=== PATIENT | male | born 1940 | race Caucasian/White ===

== ENCOUNTER 2018-06-09 12:26 | Emergency (ER) | payer MEDICARE, OTHER ==
[2018-06-09] MEDS ORDERED: ceFAZolin 1 GM VIAL IM STA (13:07)
[2018-06-09] MEDS ORDERED: LIDOCAINE MPF 1%-EPI 1:200000 30 ML VIAL SUBQ STA (14:37)
--- NOTE | 2018-06-09 14:40 | Ultrasound Report ---
Reason: right lower leg swelling and tender Procedure Date: 06/09/2018 Accession Number: [id number] / [id number] Procedure: US - Duplex Ext Veins Right CPT Code: FULL RESULT: EXAM: RIGHT LOWER EXTREMITY VENOUS ULTRASOUND EXAM DATE: 06/09/2018 01:53 PM. CLINICAL HISTORY: Right leg pain COMPARISON: None. TECHNIQUE: Real-time sonographic vascular imaging was performed by the prescriptionist through the lower extremity utilizing both color-flow and Doppler spectral analysis. Multiple service support representative static images were saved for review. FINDINGS: Common Femoral Vein (CFV): Normal. CFV-GSV Junction: Normal. Profunda Femoral Vein (PFV): Normal. Femoral Vein (FV) Prox: Normal. Femoral Vein (FV) Mid: Normal. Femoral Vein (FV) Dist: Normal. Popliteal Vein: Normal. Posterior Tibial Veins: Visualized portions within normal limits. Peroneal Veins: Not seen. Other: None. IMPRESSION: No evidence for deep venous thrombosis. RADIA
[2018-06-09 15:03] VITALS: BP 150/66
--- NOTE | 2018-06-09 15:23 | ED Physician Documentation ---
PD HPI SKIN - Stated complaint Stated Complaint: SENT/POSS DVT - Chief complaint Chief Complaint: General - History obtained from History obtained from: Patient - History of Present Illness Timing - onset: How many days ago (3-4 days) Timing - duration: Days Timing - details: Abrupt onset (he says he awoke with swelling in front of heredia. No noted injury. Has had discoloration develop distal to it with swelling in anterior lower leg. No calf pain per se. Seen by PCP and referred to ER for concern of DVT and possible cellulitis.) Location: RLE (anterior proximal heredia initially, then with dusky discoloration and swelling distal anterolateral lower leg.) Quality / character: Discolored (dusky red/purple on anterolateral lower leg.), Swelling Associated symptoms: No: Fever, Myalgias, N/V/D Similar symptoms before: Has not had sx before Review of Systems Constitutional: denies: Fever, Chills Skin: denies: Abrasion (s), Laceration (s) Neurologic: denies: Focal weakness, Numbness PD PAST MEDICAL HISTORY - Past Medical History Cardiovascular: Hypertension, Coronary artery disease, Atrial fibrillation, Other Respiratory: None Endocrine/Autoimmune: None GI: None : None HEENT: Chronic vision loss, Chronic hearing loss Psych: None Musculoskeletal: Osteoarthritis Derm: None - Past Surgical History General: Colonoscopy Ortho: Hip replacement, Other Cardiovascular: CABG, Coronary stent - Present Medications Home Medications: Ambulatory Orders Medication Instructions Recorded Confirmed Amlodipine Besylate/Benazepril 5 mg ORAL BID 01/29/15 01/29/15 [Lotrel 5-10 mg Capsule] Aspirin/Calcium Carbonate/Mag 81 mg ORAL DAILY 01/29/15 01/29/15 [Aspirin Buffered 325 mg Tab] Atenolol/Chlorthalidone 50 mg ORAL DAILY 01/29/15 10/29/15 [Atenolol-Chlorthalidone 50-25] Calcium Carb/Magnesium Ox,Carb 1 DAILY 01/29/15 01/29/15 [Parveen-Mag Tablet Chewable] Cholecalciferol (Vitamin D3) 1 DAILY 01/29/15 01/29/15 [Vitamin D] Gluc/MSM/C/[place]/Manganes/Prim 1 DAILY 01/29/15 01/29/15 [Joint Support Complex Softgel] Multivitamin [Multivitamins] 1 DAILY 01/29/15 01/29/15 [place]-3 Fatty Acids/Fish Oil 1 DAILY 01/29/15 01/29/15 [[place] 3 1,000 mg Softgel] Rosuvastatin Calcium [Crestor] 1 DAILY 01/29/15 01/29/15 Tamsulosin HCl [Flomax] 1 DAILY 01/29/15 01/29/15 Cephalexin [Keflex] 500 mg PO Q6H #28 capsule 06/09/18 - Allergies Allergies/Adverse Reactions: Allergies Allergy/AdvReac Type Severity Reaction Status Date / Time No Known Drug Allergies Allergy Verified 06/09/18 13:00 - Social History Does the pt smoke?: No Smoking Status: Never smoker Does the pt drink ETOH?: Yes Does the pt have substance abuse?: No - Immunizations Immunizations are current?: Yes - POLST Patient has POLST: No PD ED PE NORMAL - Vitals Vital signs reviewed: Yes - General General: Alert and oriented X 3, No acute distress, Well developed/nourished - Derm Derm: Normal color, Warm and dry - Extremities Extremities: Other (right proximal anterior heredia with focal area of swelling and fluctuance. Some dusky red color there and distal to that on anterolateral lower leg down to above the ankle. Not tender in calf per se. No redness proximal to the swelling. ) - Neuro Neuro: No motor deficit, No sensory deficit, Other (good pulsed, color and cap refill in toes. ) Results - Vitals Vitals: Oxygen O2 Source Room air - Rads (name of study) duplex right leg Radiology: Prelim report reviewed (no DVT), EMP read contemporaneously, See rad report Procedures - Abscess I&D (location) right anterior lower leg Preparation: Lidocaine 1%, With epi Incision: Incised with scalpel. No: Purulent drainage (got out dark blood c/w hematoma.) Other: Pt tolerated well, Dressing applied, Antibiotic prescribed (the area of swelling seem hematoma without purulence. However concern for the redness on rest of leg could be cellulitic.) PD MEDICAL DECISION MAKING - ED course Complexity details: considered differential (hematoma versus abscess on upper heredia. Nicked with scalpel and dark blood out c/w hematoma. The redness from there down may be just inflammation but consider cellulitis. U/S negative for DVT. ), d/w patient Departure - Departure Disposition: 01 Home, Self Care Clinical Impression: Cellulitis of lower leg Hematoma of right lower extremity Qualifiers: Encounter type: initial encounter Qualified Code(s): S80.11XA - Contusion of right lower leg, initial encounter Condition: Stable Record reviewed to determine appropriate education?: Yes Instructions: ED Infec Skin Cellulitis Follow-Up: Fernando Merlos MD [Primary Care Provider] - Prescriptions: Cephalexin [Keflex] 500 mg PO Q6H #28 capsule Comments: Use some warm moist towels or soak the leg periodically this afternoon and evening to help promote further drainage of the hematoma from the incision. Use the cephalexin as directed for the infection. Recheck if not improving over the next several days. Elevate and rest the leg and you could use an Mathew wrap on the lower leg to help reduce swelling as well. Discharge Date/Time: 06/09/18 15:43
== END 2018-06-09 15:43 | disposition home or self-care (01) ==
LOC: ED 12:26
DX: L03.115 Cellulitis of right lower limb (principal); S80.11XA Contusion of right lower leg, initial encounter; X58.XXXA Exposure to other specified factors, initial encounter; I10 Essential (primary) hypertension; Z79.82 Long term (current) use of aspirin
CPT/HCPCS: 10140; 96372; 99283

== ENCOUNTER 2021-06-24 01:12 | Outpatient (CLI) | payer MEDICARE, OTHER | END 2021-06-24 01:13 | disposition critical access hospital (66) | LOC: EMS 01:12 | DX: R00.0 Tachycardia, unspecified (principal); R07.89 Other chest pain | CPT/HCPCS: A0425; A0427 ==

== ENCOUNTER 2021-06-24 01:30 | Emergency (ER) | payer MEDICARE, OTHER ==
[2021-06-24] MEDS ORDERED: SODIUM CHLORIDE 0.9% 500 ML IV STA (01:44)
[2021-06-24 02:07] LABS: BASOPHILS % (AUTO) 0.1 %; HCT - HEMATOCRIT 40.6 % (42.0-52.0); LYMPHOCYTES # (AUTO) 0.6 10^3/uL (1.5-3.5); LYMPHOCYTES % (AUTO) 3.9 %; MEAN CORPUSCULAR HEMOGLOBIN 32.1 pg (27.0-31.0); MEAN CORPUSCULAR HGB CONC 34.5 g/dL (32.0-36.0); MEAN CORPUSCULAR VOLUME 93.1 fL (80.0-94.0); MEAN PLATELET VOLUME 11.2 fL (7.4-11.4); MONOCYTES # (AUTO) 0.8 10^3/uL (0.0-1.0); MONOCYTES % (AUTO) 5.8 %; NEUTROPHILS # (AUTO) 12.9 10^3/uL (1.5-6.6); NEUTROPHILS % (AUTO) 89.8 %; PLT - PLATELET COUNT 175 10^3/uL (130-450); RED BLOOD COUNT 4.36 10^6/uL (4.70-6.10); WHITE BLOOD COUNT 14.4 x10^3/uL (4.8-10.8)
[2021-06-24 02:20] LABS: ALBUMIN 4.1 g/dL (3.2-5.5); ALBUMIN/GLOBULIN RATIO 1.6 (1.0-2.2); BILIRUBIN,TOTAL 0.6 mg/dL (0.2-1.0); CALCIUM 9.4 mg/dL (8.5-10.3); CREATININE 1.2 mg/dL (0.6-1.2); POTASSIUM 3.9 mmol/L (3.5-5.0); TOTAL PROTEIN 6.7 g/dL (6.7-8.2)
--- NOTE | 2021-06-24 03:18 | ED Physician Documentation ---
PD HPI CHEST PAIN - Stated complaint Stated Complaint: CHEST PRESSURE - Chief complaint Chief Complaint: Cardiac - History obtained from History obtained from: Patient - Additional information Additional information: Patient is an 80-year-old male with a history significant for hypertension and dyslipidemia presenting for evaluation of chest pain And feeling his heart racing that started an hour ago and woke him up from his sleep. Patient reports having trouble sleeping and felt his heart racing. He then had a minute of midsternal chest pain that resolved on its own. The pain did not radiate. Nothing made it better or worse. He denies having associated diaphoresis, difficulty breathing, nausea. He did walk a mile and a half today and was working in his garden and believes he may have overdone it.He denies recent fever, cough, congestion, abdominal pain. He currently feels back to his baseline. Review of Systems Constitutional: denies: Fever Nose: denies: Congestion Cardiac: reports: Chest pain / pressure, Palpitations Respiratory: denies: Dyspnea, Cough GI: denies: Abdominal Pain, Vomiting : reports: Frequency. denies: Dysuria Skin: denies: Rash Musculoskeletal: denies: Back pain Neurologic: denies: Headache PD PAST MEDICAL HISTORY - Past Medical History Past Medical History: Yes Cardiovascular: Hypertension, Coronary artery disease, Atrial fibrillation, Other Respiratory: None Endocrine/Autoimmune: None GI: None : None HEENT: Chronic vision loss, Chronic hearing loss Psych: None Musculoskeletal: Osteoarthritis Derm: None - Past Surgical History General: Colonoscopy Ortho: Hip replacement, Other Cardiovascular: CABG, Coronary stent - Present Medications Home Medications: Ambulatory Orders Medication Instructions Recorded Confirmed Amlodipine Besylate/Benazepril 5 mg ORAL BID 01/29/15 01/29/15 [Lotrel 5-10 mg Capsule] Aspirin/Calcium Carbonate/Mag 81 mg ORAL DAILY 01/29/15 01/29/15 [Aspirin Buffered 325 mg Tab] Atenolol/Chlorthalidone 50 mg ORAL DAILY 01/29/15 10/29/15 [Atenolol-Chlorthalidone 50-25] Calcium Carb/Magnesium Ox,Carb 1 DAILY 01/29/15 01/29/15 [Parveen-Mag Tablet Chewable] Cholecalciferol (Vitamin D3) 1 DAILY 01/29/15 01/29/15 [Vitamin D] Gluc/MSM/C/[place]/Manganes/Prim 1 DAILY 01/29/15 01/29/15 [Joint Support Complex Softgel] Multivitamin [Multivitamins] 1 DAILY 01/29/15 01/29/15 [place]-3 Fatty Acids/Fish Oil 1 DAILY 01/29/15 01/29/15 [[place] 3 1,000 mg Softgel] Rosuvastatin Calcium [Crestor] 1 DAILY 01/29/15 01/29/15 Tamsulosin HCl [Flomax] 1 DAILY 01/29/15 01/29/15 cephALEXin [Keflex] 500 mg PO Q6H #28 capsule 06/09/18 - Allergies Allergies/Adverse Reactions: Allergies Allergy/AdvReac Type Severity Reaction Status Date / Time No Known Drug Allergies Allergy Verified 06/24/21 01:37 - Social History Does the pt smoke?: No Smoking Status: Never smoker Does the pt drink ETOH?: Yes Does the pt have substance abuse?: No - Immunizations Immunizations are current?: Yes - POLST Patient has POLST: No PD ED PE NORMAL - General General: Alert and oriented X 3, No acute distress, Well developed/nourished - HEENT HEENT: Atraumatic, Moist mucous membranes - Neck Neck: Supple, no meningeal sign - Cardiac Cardiac: RRR, No murmur, Strong equal pulses - Respiratory Respiratory: No respiratory distress, Clear bilaterally - Abdomen Abdomen: Normal bowel sounds, Soft, Non tender - Derm Derm: Warm and dry - Extremities Extremities: No edema, No calf tenderness / cord - Neuro Neuro: Normal speech Results - Vitals Vitals: Vital Signs - 24 hr 06/24/21 06/24/21 06/24/21 01:30 01:41 03:16 Temperature 36.6 C Heart Rate 72 77 Respiratory 17 18 17 Rate Blood Pressure 160/71 H O2 Saturation 96 98 06/24/21 06/24/21 06/24/21 03:43 05:00 07:00 Temperature Heart Rate 67 60 60 Respiratory 17 19 21 Rate Blood Pressure 126/64 114/60 132/61 H O2 Saturation 95 95 93 06/24/21 09:19 Temperature Heart Rate 72 Respiratory 12 Rate Blood Pressure 141/68 H O2 Saturation 96 Oxygen O2 Source Room air - EKG (time done) 0154 Rate: Rate (enter#) (74) Rhythm: NSR [place]: Normal Ischemia: No: ST elevation c/w ischemia Other comments: Other comments (Occasional PACs) Compare to prior EKG: Unchanged from prior EKG - Labs Labs: Laboratory Tests 06/24/21 06/24/21 06/24/21 02:01 02:01 02:01 WBC 14.4 H RBC 4.36 L Hgb 14.0 Hct 40.6 L MCV 93.1 MCH 32.1 H MCHC 34.5 RDW 13.0 Plt Count 175 MPV 11.2 Neut # (Auto) 12.9 H Lymph # (Auto) 0.[address] [place] # (Auto) 0.8 Eos # (Auto) 0.0 Baso # (Auto) 0.0 Absolute Nucleated RBC 0.00 Nucleated RBC % 0.0 Sodium 134 L Potassium 3.9 Chloride 102 Carbon Dioxide 21 Anion Gap 11.0 BUN 33 H Creatinine 1.2 Estimated GFR (MDRD) 58 L Glucose 154 H Calcium 9.4 Magnesium 2.0 Total Bilirubin 0.6 AST 27 ALT 27 Alkaline Phosphatase 41 L Troponin I High Sens 19.3 Total Protein 6.7 Albumin 4.1 Globulin 2.6 Albumin/Globulin Ratio 1.6 Lipase 31 SARS-CoV-2 (PCR) 06/24/21 06/24/21 06/24/21 05:15 06:25 07:55 WBC 14.1 H RBC 4.37 L Hgb 14.2 Hct 40.6 L MCV 92.9 MCH 32.5 H MCHC 35.0 RDW 13.2 Plt Count 196 MPV 11.4 Neut # (Auto) Lymph # (Auto) [place] # (Auto) Eos # (Auto) Baso # (Auto) Absolute Nucleated RBC Nucleated RBC % Sodium Potassium Chloride Carbon Dioxide Anion Gap BUN Creatinine Estimated GFR (MDRD) Glucose Calcium Magnesium Total Bilirubin AST ALT Alkaline Phosphatase Troponin I High Sens 70.8 H* Total Protein Albumin Globulin Albumin/Globulin Ratio Lipase SARS-CoV-2 (PCR) NOT DETECTED 06/24/21 07:55 WBC RBC Hgb Hct MCV MCH MCHC RDW Plt Count MPV Neut # (Auto) Lymph # (Auto) [place] # (Auto) Eos # (Auto) Baso # (Auto) Absolute Nucleated RBC Nucleated RBC % Sodium Potassium Chloride Carbon Dioxide Anion Gap BUN Creatinine Estimated GFR (MDRD) Glucose Calcium Magnesium Total Bilirubin AST ALT Alkaline Phosphatase Troponin I High Sens 90.1 H* Total Protein Albumin Globulin Albumin/Globulin Ratio Lipase SARS-CoV-2 (PCR) PD MEDICAL DECISION MAKING - ED course Complexity details: reviewed results, re-evaluated patient, d/w patient ED course: 321 - Patient has been asymptomatic since arriving to the ER. Initial labs without significant findings. EKG is unchanged from previous. Plan for second troponin. 06 - 2nd troponin has tripled from initial with delta rise of 51. Therefore, I have concerns for myocardial ischemia. Will start on heparin. 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 Patient has continued to deny any episodes of chest pain since being here. He last had a CABG 18 years ago. Discussed plan for transfer to facility with cardiology Services. We will try [facility] first but patient is aware we may need to look into other facilities. 0658 - D/W Poly at transfer center. No beds but will put pt on list. 0714 - D/W Dr. Edmond (), no beds now, will be on waitlist. 0800 - Pt signed out to oncoming provider, plan for transfer. - Critical Care Time(min): 31 Departure - Departure Clinical Impression: NSTEMI (non-ST elevated myocardial infarction)
[2021-06-24] MEDS ORDERED: ASPIRIN 325 MG TABLET PO STA (06:19)
[2021-06-24] MEDS ORDERED: HEPARIN 5,000 UNIT/ML VIAL ONE (06:39)
[2021-06-24] MEDS: HEPARIN 25000UNITS/500ML (D5W) 25,000 UNIT/500 ML BAG IV SCH (06:40)
[2021-06-24 07:59] LABS: HCT - HEMATOCRIT 40.6 % (42.0-52.0); HGB - HEMOGLOBIN 14.2 g/dL (14.0-18.0); MEAN CORPUSCULAR HEMOGLOBIN 32.5 pg (27.0-31.0); MEAN CORPUSCULAR VOLUME 92.9 fL (80.0-94.0); MEAN PLATELET VOLUME 11.4 fL (7.4-11.4); RED BLOOD COUNT 4.37 10^6/uL (4.70-6.10); RED CELL DISTRIBUTION WIDTH 13.2 % (12.0-15.0); WHITE BLOOD COUNT 14.1 x10^3/uL (4.8-10.8)
--- NOTE | 2021-06-24 12:10 | XRAY Report ---
PROCEDURE: Chest 1 View X-Ray INDICATIONS: CP TECHNIQUE: One view of the chest was acquired. COMPARISON: Chest x-ray 06/10/2015 FINDINGS: Surgical changes and devices: Sternal wires. Lungs and pleura: There is an overall appearance of increased interstitial prominence. No effusions. Mediastinum: Mediastinal contours appear normal. Heart size is mildly enlarged. Bones and chest wall: No suspicious bony lesions. Overlying soft tissues appear unremarkable. IMPRESSION: Increased interstitial prominence suggestive of edema. However, superimposed areas of airspace diseas e such as pneumonia/atelectasis cannot be definitively excluded. The above findings are concordant with preliminary report. Reviewed by: Santa Garcia MD on 06/24/2021 12:09 PM PDT Approved by: Santa Garcia MD on 06/24/2021 12:09 PM PDT Station ID: [id number]
[2021-06-25] MEDS: HEPARIN 25000UNITS/500ML (D5W) 25,000 UNIT/500 ML BAG IV SCH (05:50)
[2021-06-25 07:25] LABS: HCT - HEMATOCRIT 44.4 % (42.0-52.0); HGB - HEMOGLOBIN 15.2 g/dL (14.0-18.0)
--- NOTE | 2021-06-25 15:11 | ED Physician Documentation ---
ED Addendum - Addendum Addendum: 06/25/21 15:10The patient is without any chest pain today. Vital signs have remained stable. Report from the [facility] [place] still no beds available and other facilities. The [facility] transfer assistance is not come up with any beds available either. The patient remains here in the ER.
[2021-06-25] MEDS ORDERED: METOPROLOL TARTRATE 50 MG TABLET PO STA (18:02)
[2021-06-26] MEDS: HEPARIN 25000UNITS/500ML (D5W) 25,000 UNIT/500 ML BAG IV SCH (06:24)
[2021-06-26 07:30] LABS: CALCIUM 9.2 mg/dL (8.5-10.3); CREATININE 0.9 mg/dL (0.6-1.2); MAGNESIUM 2.2 mg/dL (1.7-2.8)
[2021-06-26 07:47] LABS: BASOPHILS % (AUTO) 0.3 %; HCT - HEMATOCRIT 44.9 % (42.0-52.0); HGB - HEMOGLOBIN 15.5 g/dL (14.0-18.0); LYMPHOCYTES # (AUTO) 1.2 10^3/uL (1.5-3.5); LYMPHOCYTES % (AUTO) 15.5 %; MEAN CORPUSCULAR HEMOGLOBIN 32.5 pg (27.0-31.0); MEAN CORPUSCULAR HGB CONC 34.5 g/dL (32.0-36.0); MEAN CORPUSCULAR VOLUME 94.1 fL (80.0-94.0); MEAN PLATELET VOLUME 11.2 fL (7.4-11.4); MONOCYTES # (AUTO) 0.9 10^3/uL (0.0-1.0); MONOCYTES % (AUTO) 11.4 %; NEUTROPHILS # (AUTO) 5.6 10^3/uL (1.5-6.6); NEUTROPHILS % (AUTO) 72.5 %; PLT - PLATELET COUNT 183 10^3/uL (130-450); RED BLOOD COUNT 4.77 10^6/uL (4.70-6.10); RED CELL DISTRIBUTION WIDTH 13.2 % (12.0-15.0); WHITE BLOOD COUNT 7.7 x10^3/uL (4.8-10.8)
[2021-06-26] MEDS ORDERED: amLODIPine 5 MG TABLET PO SCH (09:00)
[2021-06-26] MEDS ORDERED: METOPROLOL TARTRATE 50 MG TABLET PO SCH (09:00)
[2021-06-26] MEDS ORDERED: ATORVASTATIN 40 MG TABLET PO SCH (09:00)
[2021-06-26] MEDS ORDERED: TAMSULOSIN 0.4 MG CAPSULE PO SCH (09:00)
[2021-06-26 13:08] VITALS: BP 155/85
--- NOTE | 2021-06-26 13:30 | ED Physician Documentation ---
ED Addendum - Addendum Addendum: 06/26/21 13:29 The patient was without any chest pain still today. His repeat troponin is actually falling showing a post completed infarct. We still need to better evaluate and have no ability to do that here. We did get an accepting facility with [facility] I talked with the hospitalist there who was accepting of the transfer. He will be transferred by ALS in stable condition. Disposition: The patient is transferred to acute care facility in stable condition. Diagnoses: 1. Acute chest pain episode 2. Elevated troponin 3. Non-ST elevation NE
== END 2021-06-26 13:15 | disposition short-term general hospital (02) ==
LOC: EDUNIT# → ED 01:30
DX: I21.4 Non-ST elevation (NSTEMI) myocardial infarction (principal)
CPT/HCPCS: 36415; 71045; 80048; 80053; 83690; 83735; 84484; 85014; 85018; 85025; 85027; 85730; 87635; 93005; 96365; 96366; 96376; 99285; 99291; A9270

== ENCOUNTER 2023-01-26 08:52 | Outpatient (CLI) | payer MEDICARE, OTHER ==
[2023-01-26 12:24] LABS: ALBUMIN 4.4 g/dL (3.2-5.5); ALBUMIN/GLOBULIN RATIO 1.7 (1.0-2.2); ALKALINE PHOSPHATASE 66 IU/L (42-121); ALT ALANINE AMINOTRANSFERASE 17 IU/L (10-60); AST ASPARTATE AMINOTRANSFERASE 20 IU/L (10-42); BILIRUBIN,TOTAL 0.7 mg/dL (0.2-1.0); BUN - BLOOD UREA NITROGEN 17 mg/dL (6-20); CALCIUM 9.9 mg/dL (8.5-10.3); CARBON DIOXIDE - CO2 28 mmol/L (21-32); CHLORIDE 100 mmol/L (101-111); CHOL/HDL RATIO 2.6 (<5.0); CHOLESTEROL 161 mg/dL; GFR - MDRD 72 (>89); GLUCOSE 114 mg/dL (74-104); HDL CHOLESTEROL 61 mg/dL; LDL CHOLESTEROL,CALCULATED 76 mg/dL; LDL/HDL RATIO 1.2 (<3.6); MAGNESIUM 1.7 mg/dL (1.7-2.3); POTASSIUM 3.6 mmol/L (3.5-4.5); SODIUM 136 mmol/L (135-145); TRIGLYCERIDES 119 mg/dL (48-352); VLDL CHOLESTEROL 24 mg/dL
[2023-01-26 13:35] LABS: THYROID STIMULATING HORMONE 1.99 uIU/mL (0.34-5.60)
== END 2023-01-26 08:53 | disposition home or self-care (01) ==
LOC: LAB.N 08:52
PROVIDERS: ATTEND Internal Medicine Cardiovascular Disease
DX: I48.0 Paroxysmal atrial fibrillation (principal); E78.5 Hyperlipidemia, unspecified
CPT/HCPCS: 36415; 80053; 80061; 83721; 83735; 84443

== ENCOUNTER 2023-03-27 00:27 | Outpatient (CLI) | payer MEDICARE, OTHER | END 2023-03-27 23:59 | disposition left against medical advice (07) | LOC: EMS 00:27 | DX: R42 Dizziness and giddiness (principal); R61 Generalized hyperhidrosis ==